=== PATIENT | female | born 1990 | race Caucasian/White ===

== ENCOUNTER 2022-05-27 07:23 | Emergency (ER) | payer OTHER ==
[~2022-05-27] VITALS: Ht 162.6 cm; Wt 74.1 kg
[2022-05-27] MEDS ORDERED: IBUP200T46 PO (07:32)
[2022-05-27] MEDS ORDERED: ONDANSETRON 4MG 2ML VIAL IV ONE (08:20)
[2022-05-27] MEDS ORDERED: KETOROLAC 30 MG/ML 1ML VIAL IV ONE (09:05)
[2022-05-27 09:06] LABS: BASO # 0.1 10^3/uL (0.0-0.2); BASO % 0.4 % (0.0-1.0); EOS # 0.1 10^3/uL (0.0-0.5); EOS % 1.1 % (0.0-3.0); HEMATOCRIT 37.7 % (36.0-47.0); HEMOGLOBIN 12.9 g/dl (12.0-15.5); LYMPH # 1.1 10^3/uL (1.5-5.0); MEAN CORPUSCULAR HEMOGLOBIN 30.1 pg (27.0-33.0); MEAN CORPUSCULAR HGB CONC 34.2 g/dl (32.0-36.5); MEAN CORPUSCULAR VOLUME 88.1 fl (80.0-96.0); MONO % 13.7 % (2.0-8.0); NEUTROPHILS # 8.3 10^3/uL (1.5-8.5); NEUTROPHILS % 73.8 % (36.0-66.0); PLATELET COUNT, AUTOMATED 325 10^3/uL (150-450); RED BLOOD COUNT 4.28 10^6/uL (4.00-5.40); WHITE BLOOD COUNT 11.2 10^3/uL (4.0-10.0)
[2022-05-27 09:29] LABS: ALBUMIN 3.5 GM/DL (3.2-5.2); BILIRUBIN,DIRECT 0.2 MG/DL (0.0-0.2); BILIRUBIN,TOTAL 0.4 MG/DL (0.2-1.0); TOTAL PROTEIN 6.7 GM/DL (6.4-8.2)
[2022-05-27 09:34] LABS: MONO # 1.5 10^3/uL (0.0-0.8)
[2022-05-27] MEDS ORDERED: ISOVUE-370 76% 100ML VIAL As Ordered ONE (10:27)
[2022-05-27 12:01] VITALS: BP 132/72
[2022-05-30] MEDS ORDERED: CIPR250T26 PO (07:48)
== END 2022-05-27 12:55 | disposition home or self-care (01) ==
LOC: M ED 07:23
DX: K59.00 Constipation, unspecified (principal); N28.1 Cyst of kidney, acquired; K21.9 Gastro-esophageal reflux disease without esophagitis
CPT/HCPCS: 74018; 74177; 76705; 80047; 80076; 81001; 83690; 84702; 85025; 87088; 87186; 96374; 96375; 99284; J1885; J2405; Q9967